=== PATIENT | female | born 1945 | race American Indian/Alaskan Native ===

== ENCOUNTER 2017-06-25 11:25 | Outpatient (CLI) | payer MEDICARE ==
--- NOTE | 2017-06-25 13:42 | Mammography Report ---
BONE DEXA:06/25/17 11:25:00 CLINICAL: Postmenopausal. No comparison. TECHNIQUE: Two site bone DEXA performed on an Hologic scanner. FINDINGS: The average BMD of the lumbar spine L1-L4 is 1.101g/cm squared with a T-score of -0.4 and a Z-score of is 2.1. The average BMD of the left hip is 1.027g/cm squared with a T-score of 0 and a Z-score of +1.2. However, the left femoral neck BMD is 0. 690g/cm squared with a T score of -1.8 and a Z score of -0.3 IMPRESSION: 1. WHO classification: Normal with average fracture risk based on lumbar spine measurements. 2. WHO classification: Osteopenia with increased fracture risk based on left femoral neck measurements. RECOMMENDATION: Clinical correlation and routine screening. DEFINITIONS: BMD = Bone Mineral Density T-score = BMD related to mean peak bone mass of young adult (mean expressed in Standard Deviation) Z-score = Age matched BMD expressed in SD World Health Organization (WHO) Diagnostic Criteria Normal T-score > -1 SD Osteopenia T-score between -1 and -2.4 SD Osteoporosis T-score -2.5 SD or below NOTE: BMD is not the only risk factor for fracture. One should also consider factors such as the patient's age, risk of falling, previous osteoporotic fracture, family history of osteoporotic fractures, current smoker, and low body weight. Z-scores are not calculated if >80 years of age.
== END 2017-06-25 11:26 | disposition home or self-care (01) ==
LOC: SPVWC 11:25
PROVIDERS: ATTEND Family Medicine
DX: M85.852 Other specified disorders of bone density and structure, left thigh (principal); Z78.0 Asymptomatic menopausal state
CPT/HCPCS: 77080

== ENCOUNTER 2019-05-30 06:33 | Day surgery (SDC) | payer MEDICARE ==
[2019-05-30 07:54] LABS: INR 1.64 (0.87-1.13)
[2019-05-30] MEDS ORDERED: SODIUM CHLORIDE 0.9% 500 ML 500 ML IV SCH (08:00)
[2019-05-30] MEDS ORDERED: HEPARIN/NS 5000 UNIT/500ML 1,000 ML IR ONE (08:10)
[2019-05-30] MEDS: LIDOCAINE (2%) 20 MG/1 ML VIAL 20 ML MDV INFILTRATI ONE ×2 (08:47→08:59)
[2019-05-30] MEDS: fentaNYL 100 MCG/2 ML INJ ONE ×3 (08:47→08:59)
[2019-05-30] MEDS: MIDAZOLAM 2 MG/2 ML INJ ONE ×3 (08:47→08:59)
[2019-05-30] MEDS: NITROGLYCERIN SYRINGE 3 ML ONE ×2 (08:48→09:02)
[2019-05-30] MEDS: VERAPAMIL 5 MG/2 ML INJ ONE ×2 (08:49→09:02)
[2019-05-30] MEDS: HEPARIN 10,000 UNITS/10 ML VIAL ONE ×2 (08:49→09:02)
--- NOTE | 2019-05-30 09:59 | Cardiac Catherization Report ---
LEFT HEART CATHETERIZATION. ORDERING PHYSICIAN: Dr. Price. CLINICAL INFORMATION: This is a 74-year-old -Citizen Of The [place] female with hypertension, hyperlipidemia, diabetes, known coronary artery disease in 2016, had PCI of the mid LAD with a drug-eluting Resolute 3.0 x 12 and distal LAD 2.25 x 12. Rest of the LAD is a small vessel disease, treated medically. Has persistent shortness of breath despite medical therapy. Procedure was done under moderate sedation, started at 8:56 and finished at 9:11, which is 15 minutes of moderate sedation. Procedure was performed via the right radial artery, sterile technique, local anesthesia, 6-Bengali radial sheath inserted. Left system engaged with JL3.5 catheter. Left main is large and patent, bifurcates into medium caliber LAD. Proximal is patent. Mid stent is patent, distal stent is patent. After distal stent, there is a focal 90% lesion of approximately 10 mm in length, but the vessel size is less than 2 mm and the rest of the wraparound LAD is a small vessel, patent with mild to moderate luminal irregularities. Circumflex, medium to large caliber vessel, proximal patent, mid 20%, OM1 and OM2 are medium caliber vessel, patent with multiple branches are patent with mild luminal irregularities. RCA engaged with JR4, is a medium to large caliber vessel, patent. Diffuse mild luminal irregularities. PDA and PLV are small caliber vessels, less than 2 mm, diffuse disease; proximally of the PLV is around 40% and PDA is a small vessel disease. No significant angiographic difference from previous catheterization. LV gram done in ANDORRAN and WELCH view shows normal LV function, LVEDP 24 mmHg, LV is 131. Aortic is 132/72. No gradient across the aortic valve on pullback. 5-Bengali catheters all taken over guidewire, 6-Bengali radial sheath was discontinued. Radial band applied. No hematoma, no bleeding. SUMMARY: Left main patent, LAD, proximal patent, mid stent patent, distal stent patent, but after the distal stent, there is a focal 90% lesion of a less than 2.0 vessel. The rest of vessel that is patent after the lesion, circumflex mid 20%, OM1 and OM2 patent, RCA patent. PLV proximal 40%, PDA patent, but small vessel. Both vessels, normal LV function. Continue medical management, may restart Coumadin for atrial fibrillation and home medications and medical management. Discussed in detail with the patient and patient's family. JOB# [id number] KANE/COTY
[2019-05-30] MEDS ORDERED: traMADol 50 MG TAB PO PRN (10:15)
--- NOTE | 2019-05-30 10:24 | Short Stay Summary ---
Short Stay Documentation Date of service: 05/30/19 - History H&P: obtained from office - Allergies and Medications Current Medications: Allergies No Known Allergies Allergy (Verified 08/05/13 09:21) Home Medications Medication Instructions Recorded Confirmed Last Taken Type Albuterol Sulfate [Ventolin HFA] 3 inhalation INHALATION 4XD 08/05/13 05/30/19 05/28/19 History Aspirin 81 mg PO QDAY 08/05/13 05/30/19 05/30/19 History Diltiazem HCl [Diltiazem 24Hr ER] 180 mg PO DAILY 08/05/13 05/30/19 05/28/19 History Insulin Aspart (Nf) [NovoLOG 35 units SUB-Q BS 08/05/13 05/30/19 05/28/19 History Flexpen] Insulin Aspart Protam & Aspart 35 units SUB-Q AMHY 08/05/13 05/30/19 05/28/19 History [NovoLOG Mix 70-30 Flexpen] Latanoprost 0.005% 1 drop OTIC DAILY 08/05/13 05/30/19 05/28/19 History Spironolactone 25 mg PO DAILY 08/05/13 05/30/19 05/28/19 History Warfarin [Coumadin] 5 mg PO DAILY 08/05/13 05/30/19 05/28/19 History carvediloL [Coreg] 12.5 mg PO BID 08/05/13 05/30/19 05/28/19 History Cholecalciferol (Vitamin D3) 2,000 unit PO QDAY 05/30/19 05/30/19 05/28/19 History [Vitamin D3 2,000 UNIT CAP] Clopidogrel [Plavix] 75 mg PO QDAY 05/30/19 05/30/19 05/27/19 History ISOSORBIDE MONOnitrate [Imdur ER] 60 mg PO QDAY 05/30/19 05/30/19 05/28/19 History Pravastatin [Pravachol] 40 mg PO QHS 05/30/19 05/30/19 05/28/19 History metFORMIN [Glucophage] 500 mg PO BID 05/30/19 05/30/19 05/28/19 History Active Medications Sodium Chloride (Nacl 0.9% 500 Ml) 500 mls @ 50 mls/hr IV DIRECT ANDREIA Stop: 05/30/19 17:59 Last Admin: 05/30/19 08:48 Dose: 100 mls Documented by: Tramadol HCl (Ultram) 50 mg PO Q4H PRN PRN Reason: Pain, Mild (1-3) - Brief post op/procedure progress note Date of procedure: 05/30/19 Pre-op diagnosis: sob Post-op diagnosis: same Anesthesia: local Estimated blood loss: none Pathology: none - Disposition Condition at discharge: Good Disposition: [id number] TO HOME OR SELFCARE - Discharge Diagnoses (1) Hypertension Status: Chronic Qualifiers: Hypertension type: essential hypertension Qualified Code(s): I10 - Essential (primary) hypertension (2) Hyperlipemia, mixed Status: Chronic (3) CAD (coronary artery disease) Status: Chronic Qualifiers: Coronary Disease-Associated Artery/Lesion type: [place] artery [place] vs. transplanted heart: [place] heart Associated angina: with stable angina Qualified Code(s): I25.118 - Atherosclerotic heart disease of [place] coronary artery with other forms of angina pectoris (4) Diabetes 1.5, managed as type 1 Status: Chronic (5) SOB (shortness of breath) on exertion Status: Chronic (6) Atrial fibrillation Status: Chronic Qualifiers: Atrial fibrillation type: longstanding persistent Qualified Code(s): I48.11 - Longstanding persistent atrial fibrillation Short Stay Discharge Plan Activity: advance as tolerated Diet: low fat, low cholesterol, low salt, diabetic Wound: keep clean and dry Special Instructions: hold Metformin (for two days) Follow up with: OKSANA SOTO MD [Primary Care Provider] - 7 Days
[2019-05-30 13:09] VITALS: BP 120/81
== END 2019-05-30 12:40 | disposition home or self-care (01) ==
LOC: CATHLABREC 06:33
PROVIDERS: ATTEND Internal Medicine
DX: R07.9 Chest pain, unspecified (principal); I25.10 Atherosclerotic heart disease of native coronary artery without angina pectoris; E78.2 Mixed hyperlipidemia; I12.9 Hypertensive chronic kidney disease with stage 1 through stage 4 chronic kidney disease, or unspecified chronic kidney disease; E11.22 Type 2 diabetes mellitus with diabetic chronic kidney disease; N18.9 Chronic kidney disease, unspecified; K21.9 Gastro-esophageal reflux disease without esophagitis; G47.33 Obstructive sleep apnea (adult) (pediatric); I48.19 Other persistent atrial fibrillation; E66.9 Obesity, unspecified; M19.90 Unspecified osteoarthritis, unspecified site; Z79.899 Other long term (current) drug therapy; Z79.82 Long term (current) use of aspirin; Z79.01 Long term (current) use of anticoagulants; Z79.84 Long term (current) use of oral hypoglycemic drugs; Z85.3 Personal history of malignant neoplasm of breast; Z98.890 Other specified postprocedural states; Z90.710 Acquired absence of both cervix and uterus
CPT/HCPCS: 36415; 85610; 85730; 93005; 93010; 93458; 99156; C1894; J1644; J2250; J3010; J7040; Q9967